=== PATIENT | female | born 1970 | race Caucasian/White ===

== ENCOUNTER 2017-04-29 15:00 | Emergency (ER) | payer MEDICAID ==
[2017-04-29 15:48] VITALS: BP 116/81; PULSE 84; RESP 16; TEMP 98.2; O2SAT 98
== END 2017-04-29 17:19 | disposition left against medical advice (07) ==
DX: Z53.21 Procedure and treatment not carried out due to patient leaving prior to being seen by health care provider (principal)

== ENCOUNTER 2017-12-12 10:37 | Emergency (ER) | payer MEDICAID ==
--- NOTE | 2017-12-12 10:54 | EDPHY ---
H & P Stated Complaint: COUGH X 1 WEEK/TRAVELING TOMORROW Time Seen by Provider: 12/12/17 10:52 HPI/ROS: HPI: This is a 47-year-old female who presents with Chief Complaint: COUGH X 1 WEEK/TRAVELING TOMORROW Location: chest Quality: cough Duration: 1 week Signs and Symptoms: no shortness of breath at rest, no shortness of breath on exertion, + cough, no chest pain, no palpitations, no lower extremity edema, no wheezing, no orthopnea, no paroxysmal nocturnal dyspnea, no fever, no injury/ trauma, no hemoptysis, no carpal pedal spasms Timing: Worsening Severity: Moderate Context: Patient reports that she is a light smoker, has traveled frequently from [place] to [place] and just return to [place] on Tuesday presents with one- week worsening right lower rib discomfort associated with nonproductive cough. She reports 1 week ago she started with upper respiratory symptoms versus allergies. Took [id number] Mucinex/cold/antihistamine with mild relief. She then took a kick boxing class several days ago and now she has abdominal soreness. She complains of discomfort and pain every time she coughs in her abdominal area. Denies any nausea/vomiting/fever/diarrhea/urinary symptoms. Does not take any hormone replacement. No history of lung disease. Modifying Factors: [id number] medications with mild relief Comment: ROS: see HPI Constitutional: No fever, no chills, no weight loss Eyes: No blurred vision Respiratory: No shortness of breath,+ cough Cardiovascular: No chest pain, no palpitations, no lower extremity edema Gastrointestinal: No nausea, no vomiting, no diarrhea Genitourinary: No dysuria Extremities: No myalgias Neurologic: No weakness, no numbness Skin: No rashes Hematologic: No bruising, no bleeding MEDICAL/SURGICAL/SOCIAL HISTORY: pmh: fibroids, rectocele psh: face plate Social history: irregular menses. Light smoker. Lives in [facility]. Family history noncontributory. CONSTITUTIONAL: Extremely well-appearing middle-aged white female, awake and alert, no obvious distress HEENT: Atraumatic and normocephalic, PERRL, EOMI. Nares patent; no rhinorrhea; no nasal mucosal edema. Tympanic membranes clear. Oropharynx clear, no exudate and moist pink mucosa. Airway patent. No lymphadenopathy. No meningismus. Cardiovascular: Normal S1/S2, regular rate, regular rhythm, without murmur rub or gallop. PULMONARY/CHEST: Symmetrical and mild reproducible tenderness right anterior lower ribs. Clear to auscultation bilaterally. Good air movement. No accessory muscle usage. ABDOMEN: Soft, nondistended, nontender, no rebound, no guarding, no peritoneal signs, no masses or organomegaly. No CVAT. EXTREMITIES: 2/2 pulses, strength 5/5, no deformities, no clubbing, no cyanosis or edema. NEUROLOGICAL: no focal neuro deficits. GCS 15. SKIN: Warm and dry, no erythema. no rash. Good capillary refill. Source: Patient Exam Limitations: No limitations - Personal History LMP (Females 10-55): Irregular Current Tetanus/Diphtheria Vaccine: Yes - Medical/Surgical History Hx Asthma: No Hx Chronic Respiratory Disease: No Hx Diabetes: No Hx Cardiac Disease: No Hx Renal Disease: No Hx Cirrhosis: No Hx Alcoholism: No Hx HIV/AIDS: No Hx Splenectomy or Spleen Trauma: No Other PMH: pmh: fibroids, rectocele. psh: face plate - Social History Smoking Status: Light smoker Constitutional: Initial Vital Signs Temperature (C) 37 C 12/12/17 10:40 Heart Rate 94 12/12/17 10:40 Respiratory Rate 18 12/12/17 10:40 Blood Pressure 104/84 H 12/12/17 10:40 O2 Sat (%) 96 12/12/17 10:40 O2 Delivery Mode Room Air Allergies/Adverse Reactions: No Known Allergies Allergy (Verified 12/12/17 10:39) Home Medications: Medication Instructions Recorded Benzonatate [Tessalon Pearles (RX)] 100 mg PO Q6 PRN #12 cap 12/12/17 Cyclobenzaprine [Flexeril 10 MG 10 mg PO TID PRN #15 tab 12/12/17 (*)] Medical Decision Making - Diagnostics Imaging Results: Imaging Impressions Chest X-Ray 12/12/17 11:00 Impression: No acute abnormality. Chest/Thorax CTA 12/12/17 11:34 Impression: 1. No evidence of pulmonary embolus using CT protocol. 2. Normal CT chest. Findings discussed with Dang Syed PAC at 12:21 hour, 12/12/2017. ED Course/Re-evaluation: D-dimer, chest x-ray, oral medications ordered Vital signs reviewed upon arrival and no hypoxia/respiratory distress. Lung sounds are clear. Given Flexeril for abdominal wall discomfort likely due to muscular strain secondary to kick boxing class. 1135: D-dimer mildly elevated; CTA chest and CBC and BMP ordered. No signs of leukocytosis/anemia/ELSI/elevated LFTs/electrolyte imbalance. CXR no opacity, no pneumothorax, no widened mediastinum CTA Chest shows no signs of PE/pneumonia. Labs reviewed. No signs of leukocytosis/anemia/ELSI/elevated LFTs/electrolyte imbalance. Antibiotics not indicated. This patient was seen under the supervision of my secondary supervising physician. I evaluated care for this patient independently. Differential Diagnosis: Chest pain including but not limited to myocardial ischemia, pulmonary embolus, chest wall pain, pleural inflammation and pulmonary infectious causes. - Data Points Laboratory Results: Laboratory Results 12/12/17 11:05 12/12/17 11:05 12/12/17 12/12/17 12/12/17 11:05 11:05 11:05 WBC 8.28 10^3/uL 10^3/uL (3.80-9.50) RBC 4.82 10^6/uL 10^6/uL (4.18-5.33) Hgb 15.4 g/dL g/dL (12.6-16.3) Hct 44.7 % % (38.0-47.0) MCV 92.7 fL fL (81.5-99.8) MCH 32.0 pg pg (27.9-34.1) MCHC 34.5 g/dL g/dL (32.4-36.7) RDW 12.1 % % (11.5-15.2) Plt Count 282 10^3/uL 10^3/uL (150-400) MPV 9.5 fL fL (8.7-11.7) Neut % (Auto) 60.7 % % (39.3-74.2) Lymph % (Auto) 27.2 % % (15.0-45.0) Cherry % (Auto) 9.1 % % (4.5-13.0) Eos % (Auto) 1.9 % % (0.6-7.6) Baso % (Auto) 0.6 % % (0.3-1.7) Nucleat RBC Rel Count 0.0 % % (0.0-0.2) Absolute Neuts (auto) 5.03 10^3/uL 10^3/uL (1.70-6.50) Absolute Lymphs (auto) 2.25 10^3/uL 10^3/uL (1.00-3.00) Absolute Monos (auto) 0.75 10^3/uL 10^3/uL (0.30-0.80) Absolute Eos (auto) 0.16 10^3/uL 10^3/uL (0.03-0.40) Absolute Basos (auto) 0.05 10^3/uL 10^3/uL (0.02-0.10) Absolute Nucleated RBC 0.00 10^3/uL 10^3/uL (0-0.01) Immature Gran % 0.5 % % (0.0-1.1) Immature Gran # 0.04 10^3/uL 10^3/uL (0.00-0.10) D-Dimer 0.65 ug/mLFEU H ug/mLFEU (0.00-0.50) Sodium 140 mEq/L mEq/L (135-145) Potassium 4.3 mEq/L mEq/L (3.5-5.2) Chloride 104 mEq/L mEq/L (97-110) Carbon Dioxide 26 mEq/l mEq/l (22-31) Anion Gap 10 mEq/L mEq/L (8-16) BUN 11 mg/dL mg/dL (7-23) Creatinine 0.7 mg/dL mg/dL (0.6-1.0) Estimated GFR > 60 Glucose 99 mg/dL mg/dL (70-100) Calcium 9.9 mg/dL mg/dL (8.5-10.4) Medications Given: Discontinued Medications Cyclobenzaprine HCl (Flexeril) 10 mg PO EDNOW ONE Stop: 12/12/17 11:01 Last Admin: 12/12/17 11:10 Dose: 10 mg Ibuprofen (Motrin) 800 mg PO EDNOW ONE Stop: 12/12/17 11:01 Last Admin: 12/12/17 11:09 Dose: 800 mg Departure - Departure Disposition: Home, Routine, Self-Care Clinical Impression: Tobacco user Strain of abdominal muscle Qualifiers: Encounter type: initial encounter Qualified Code(s): S39.011A - Strain of muscle, fascia and tendon of abdomen, initial encounter URI (upper respiratory infection) Qualifiers: URI type: unspecified viral URI Qualified Code(s): J06.9 - Acute upper respiratory infection, unspecified Condition: Good Instructions: Upper Respiratory Infection (ED) Additional Instructions: Chest x-ray today shows no signs of pneumothorax/pneumonia. CTA chest shows no signs of pulmonary embolism. It appears that you have a viral upper respiratory infection and antibiotics are not indicated. Take Tessalon Perles as needed for cough. Take Flexeril as needed for muscle spasms. Referrals: [facility],. [Clinic] - 5-7 days, if not improved Prescriptions: Benzonatate [Tessalon Pearles (RX)] 100 mg PO Q6 PRN #12 cap PRN Reason: Cough, Moderate Cyclobenzaprine [Flexeril 10 MG (*)] 10 mg PO TID PRN #15 tab PRN Reason: Spasms
[2017-12-12] MEDS ORDERED: CYCLOBENZAPRINE 10 MG TAB PO ONE (11:00)
[2017-12-12] MEDS ORDERED: IBUPROFEN 800 MG TAB PO ONE (11:00)
[2017-12-12 11:41] LABS: PLATELET COUNT 282 10^3/uL (150-400)
[2017-12-12] MEDS ORDERED: IOPAMIDOL (ISOVUE 370) 100 ML BTL IV ONE (11:49)
[2017-12-12 12:52] VITALS: BP 114/64
== END 2017-12-12 12:43 | disposition home or self-care (01) ==
DX: S39.011A Strain of muscle, fascia and tendon of abdomen, initial encounter (principal); J06.9 Acute upper respiratory infection, unspecified; F17.200 Nicotine dependence, unspecified, uncomplicated; X50.9XXA Other and unspecified overexertion or strenuous movements or postures, initial encounter; Y99.8 Other external cause status; Y93.71 Activity, boxing
CPT/HCPCS: Q9967